=== PATIENT | male | born 1940 | race Hispanic/Latino ===

== ENCOUNTER 2020-11-21 08:43 | Observation (INO) | payer MEDICARE ==
--- NOTE | 2020-11-21 09:48 | Emergency Department Report ---
ED General Adult HPI - General Chief complaint: Chest Pain Stated complaint: CHEST PAIN Time Seen by Provider: 11/21/20 09:42 Source: patient, EMS Mode of arrival: Stretcher Limitations: No Limitations - History of Present Illness Initial comments: Patient is a 79-year-old male who presents emergency department after substernal chest pressure beginning this morning. Patient states episode resolved in route to the hospital and receiving nitroglycerin, has not had recurrence of discomfort since. Patient denies chest pain or shortness of breath, denies nausea vomiting diarrhea, denies fever, denies cough. Patient at present time asymptomatic. Severity scale (0 -10): 0 - Related Data Allergies Allergy/AdvReac Type Severity Reaction Status Date / Time Penicillins Allergy Rash Verified 11/21/20 09:33 ED Review of Systems ROS: Stated complaint: CHEST PAIN Other details as noted in HPI Comment: All other systems reviewed and negative ED Past Medical Hx - Past Medical History Previous Medical History?: Yes Hx Hypertension: Yes Hx Heart Attack/AMI: Yes Hx Diabetes: Yes Hx GERD: Yes Hx of Cancer: Yes (skin) - Surgical History Past Surgical History?: Yes Hx Open Heart Surgery: Yes Additional Surgical History: hemrrhoid. left ear surgery for skin cancer - Social History Smoking Status: Never Smoker Substance Use Type: None ED Physical Exam - General Limitations: No Limitations General appearance: alert, in no apparent distress - Head Head exam: Present: atraumatic, normocephalic - Eye Eye exam: Present: normal appearance - ENT ENT exam: Present: mucous membranes moist - Neck Neck exam: Present: normal inspection - Respiratory Respiratory exam: Present: normal lung sounds bilaterally. Absent: respiratory distress - Cardiovascular Cardiovascular Exam: Present: regular rate, normal rhythm - GI/Abdominal GI/Abdominal exam: Present: soft, normal bowel sounds - Rectal Rectal exam: Present: deferred - Extremities Exam Extremities exam: Present: normal inspection - Back Exam Back exam: Present: normal inspection - Neurological Exam Neurological exam: Present: alert, oriented X3 - Psychiatric Psychiatric exam: Present: normal affect, normal mood - Skin Skin exam: Present: warm, dry, intact, normal color. Absent: rash ED Course Vital Signs 11/21/20 11/21/20 11/21/20 09:00 09:27 09:31 Temperature 98.0 F Pulse Rate 73 75 69 Respiratory 16 10 L 18 Rate Blood Pressure 128/64 128/64 O2 Sat by Pulse 99 98 Oximetry 11/21/20 11/21/20 11/21/20 09:37 09:45 10:00 Temperature Pulse Rate 72 67 Respiratory 18 21 19 Rate Blood Pressure 128/64 123/64 O2 Sat by Pulse 99 98 99 Oximetry 11/21/20 11/21/20 11/21/20 10:15 10:31 10:45 Temperature Pulse Rate 63 77 71 Respiratory 19 12 16 Rate Blood Pressure 123/64 123/64 123/64 O2 Sat by Pulse 99 90 99 Oximetry 11/21/20 11/21/20 11/21/20 11:00 11:15 11:31 Temperature Pulse Rate 65 78 66 Respiratory 18 14 13 Rate Blood Pressure 127/62 127/62 127/62 O2 Sat by Pulse 97 99 97 Oximetry 11/21/20 11/21/20 11/21/20 11:45 12:01 12:15 Temperature Pulse Rate 67 69 67 Respiratory 16 18 21 Rate Blood Pressure 127/62 127/62 127/62 O2 Sat by Pulse 97 99 98 Oximetry 11/21/20 11/21/20 11/21/20 12:31 12:45 13:00 Temperature Pulse Rate 85 66 72 Respiratory 15 16 13 Rate Blood Pressure 127/62 127/62 136/72 O2 Sat by Pulse 98 97 99 Oximetry 11/21/20 13:15 Temperature Pulse Rate 86 Respiratory 18 Rate Blood Pressure 136/72 O2 Sat by Pulse 100 Oximetry - Reevaluation(s) Reevaluation #1: 11/21/20 14:33 Contacted [facility] to confirm patient's PMH: (+) CABG x 2; (+) hypertension, (+) former smoker, (+) GERD, (+) h ypercholesterolemia, (+) hyperthyroidism, (+) DM ED Medical Decision Making - Lab Data Result diagrams: 11/21/20 09:46 11/21/20 09:46 Labs 11/21/20 11/21/20 11/21/20 09:46 09:46 12:29 WBC 3.9 L RBC 4.01 Hgb 12.6 Hct 36.8 MCV 92 MCH 31 MCHC 34 RDW 13.2 Plt Count 174 Lymph % (Auto) 24.4 [place] % (Auto) 10.8 H Eos % (Auto) 1.1 Baso % (Auto) 0.5 Lymph # (Auto) 1.0 L [place] # (Auto) 0.4 Eos # (Auto) 0.0 Baso # (Auto) 0.0 Seg Neutrophils % 63.2 Seg Neutrophils # 2.5 Sodium 140 Potassium 3.8 Chloride 107.2 H Carbon Dioxide 25 Anion Gap 12 BUN 16 Creatinine 0.8 Estimated GFR > 60 BUN/Creatinine Ratio 20 Glucose 152 H Calcium 8.4 Total Bilirubin Direct Bilirubin Indirect Bilirubin AST ALT Alkaline Phosphatase Troponin T < 0.010 0.020 Total Protein Albumin Albumin/Globulin Ratio Lipase 11/21/20 12:29 WBC RBC Hgb Hct MCV MCH MCHC RDW Plt Count Lymph % (Auto) [place] % (Auto) Eos % (Auto) Baso % (Auto) Lymph # (Auto) [place] # (Auto) Eos # (Auto) Baso # (Auto) Seg Neutrophils % Seg Neutrophils # Sodium Potassium Chloride Carbon Dioxide Anion Gap BUN Creatinine Estimated GFR BUN/Creatinine Ratio Glucose Calcium Total Bilirubin 0.30 Direct Bilirubin < 0.2 Indirect Bilirubin 0.1 AST 15 ALT 14 Alkaline Phosphatase 73 Troponin T Total Protein 6.9 Albumin 4.1 Albumin/Globulin Ratio 1.5 Lipase 31 Vital Signs 11/21/20 11/21/20 11/21/20 09:00 09:27 09:31 Temperature 98.0 F Pulse Rate 73 75 69 Respiratory 16 10 L 18 Rate Blood Pressure 128/64 128/64 O2 Sat by Pulse 99 98 Oximetry 11/21/20 11/21/20 11/21/20 09:37 09:45 10:00 Temperature Pulse Rate 72 67 Respiratory 18 21 19 Rate Blood Pressure 128/64 123/64 O2 Sat by Pulse 99 98 99 Oximetry 11/21/20 11/21/20 11/21/20 10:15 10:31 10:45 Temperature Pulse Rate 63 77 71 Respiratory 19 12 16 Rate Blood Pressure 123/64 123/64 123/64 O2 Sat by Pulse 99 90 99 Oximetry 11/21/20 11/21/20 11/21/20 11:00 11:15 11:31 Temperature Pulse Rate 65 78 66 Respiratory 18 14 13 Rate Blood Pressure 127/62 127/62 127/62 O2 Sat by Pulse 97 99 97 Oximetry 11/21/20 11/21/20 11/21/20 11:45 12:01 12:15 Temperature Pulse Rate 67 69 67 Respiratory 16 18 21 Rate Blood Pressure 127/62 127/62 127/62 O2 Sat by Pulse 97 99 98 Oximetry 11/21/20 11/21/20 11/21/20 12:31 12:45 13:00 Temperature Pulse Rate 85 66 72 Respiratory 15 16 13 Rate Blood Pressure 127/62 127/62 136/72 O2 Sat by Pulse 98 97 99 Oximetry 11/21/20 13:15 Temperature Pulse Rate 86 Respiratory 18 Rate Blood Pressure 136/72 O2 Sat by Pulse 100 Oximetry - EKG Data -: EKG Interpreted by Me (Sinus rhythm at 67, no ST-T changes, normal QRS) - Radiology Data Radiology results: report reviewed CHEST 1 VIEW INDICATION / CLINICAL INFORMATION: Chest Pain. FINDINGS: SUPPORT DEVICES: None. HEART / MEDIASTINUM: No significant abnormality. LUNGS / PLEURA: No significant pulmonary or pleural abnormality. No pneumothorax. ADDITIONAL FINDINGS: No significant additional findings. IMPRESSION: 1. No acute findings. Signer Name: Jose Ortiz MD Signed: 11/21/2020 9:00 AM Workstation Name: [id number] Critical care attestation.: If time is entered above; I have spent that time in minutes in the direct care of this critically ill patient, excluding procedure time. ED Disposition Clinical Impression: Chest pain Disposition: 09 OP ADMIT IP TO THIS HOSP Is pt being admited?: Yes Does the pt Need Aspirin: Yes Condition: Stable Instructions: Chest Pain (ED) HEART Score - HEART Score History: Slightly suspicious EKG: Normal Age: > 65 Risk factors: > 3 risk factors or hx of atherosclerotic disease Troponin: Troponin T 0.020 ng/mL (0.00-0.029) 11/21/20 12:29 Troponin: < normal limit HEART Score: 4
[2020-11-21 09:58] LABS: Basophils % (Auto) 0.5 % (0.0-1.8); Eosinophils % (Auto) 1.1 % (0.0-4.3); Hematocrit 36.8 % (35.5-45.6); Hemoglobin 12.6 gm/dl (11.8-15.2); Lymphocytes % (Auto) 24.4 % (13.4-35.0); Mean Corpuscular HGB Conc 34 % (32-34); Mean Corpuscular Volume 92 fl (84-94); Monocytes # (Auto) 0.4 K/mm3 (0.0-0.8); Monocytes % (Auto) 10.8 % (0.0-7.3); Platelet Count 174 K/mm3 (140-440); Red Blood Count 4.01 M/mm3 (3.65-5.03); Red Cell Distribution Width 13.2 % (13.2-15.2)
--- NOTE | 2020-11-21 10:05 | XRay Report ---
CHEST 1 VIEW INDICATION / CLINICAL INFORMATION: Chest Pain. FINDINGS: SUPPORT DEVICES: None. HEART / MEDIASTINUM: No significant abnormality. LUNGS / PLEURA: No significant pulmonary or pleural abnormality. No pneumothorax. ADDITIONAL FINDINGS: No significant additional findings. IMPRESSION: 1. No acute findings. Signer Name: Jose Ortiz MD Signed: 11/21/2020 10:00 AM Workstation Name: [id number]
[2020-11-21 10:56] LABS: BUN/Creatinine Ratio 20; Blood Urea Nitrogen 16 mg/dL (9-20); Calcium 8.4 mg/dL (8.4-10.2); Hemolysis Index 4
[2020-11-21 13:36] LABS: Alanine Aminotransferase 14 units/L (7-56); Albumin 4.1 g/dL (3.9-5)
[2020-11-21 13:43] LABS: Bilirubin,Direct < 0.2 mg/dL (0-0.2)
[2020-11-21] MEDS ORDERED: ASPIRIN 325 MG TAB PO ONE (14:35)
--- NOTE | 2020-11-21 14:38 | History and Physical Report ---
History of Present Illness Chief complaint: My chest started hurting today History of present illness: 79 YO Male with HTN, IL, DM, GERD, CAD S/P CABG, Skin Cancer presents ED for evaluation. Patient states that he experienced sudden onset of chest pain today while taking out his garbage. Patient states that pain was 6/10, intermittent, substernal, worsened with exertion, relieved with rest, associated with shortn ess of breath, relieved with nitro. Patient knowledges decreased exercise tolerance, dyspnea on exertion, as well as dyspnea at rest. EMS was notified and upon arrival the patient was found to be in distress and subsequently transported to [facility] for further care and evaluation of the aforementioned symptoms. The patient was seen and evaluated in the emergency department. All lab and imaging studies reviewed. The patient was found to have symptoms consistent with angina as well as diastolic congestive heart failure. The patient was admitted to telemetry and initiated on chest pain protocol. Cardiology team consulted in ED. Patient denies fever, chills, palpitations, productive cough, skin rash, recent ill contacts, or known exposure to COVID-19. No medication listed at time of admission for reconciliation. No prior admission for review. Advanced care planning conducted in the emergency department. Past History Past Medical History: acute IL, CAD, diabetes, GERD, hypertension, hyperlipidemia, other (See HPI) Past Surgical History: CABG Social history: , lives with family. denies: smoking, alcohol abuse Family history: diabetes, hypertension Medications and Allergies Allergies Allergy/AdvReac Type Severity Reaction Status Date / Time Penicillins Allergy Rash Verified 11/21/20 09:33 Review of Systems Constitutional: no weight loss, no weight gain, no fever, no chills Ears, nose, mouth and throat: no ear pain, no ear discharge, no tinnitis, no decreased hearing, no nose pain Cardiovascular: chest pain, shortness of breath, dyspnea on exertion, decreased exercise tolerance, no palpitations, no edema, no syncope Respiratory: no cough, no cough with sputum, no excessive sputum Gastrointestinal: no abdominal pain, no nausea, no vomiting, no diarrhea, no con stipation Genitourinary Male: no hematuria, no flank pain, no urinary frequency, no urinary hesitancy, no nocturia Rectal: no pain, no incontinence, no bleeding Musculoskeletal: no neck stiffness, no neck pain, no shooting arm pain, no arm numbness/tingling, no low back pain, no shooting leg pain Integumentary: no rash, no pruritis, no redness, no sores Neurological: no head injury, no transient paralysis, no paralysis, no parathesias, no seizures, no syncope Psychiatric: no memory loss, no change in sleep habits, no sleep disturbances, no hypersomnia Endocrine: no cold intolerance, no polyphagia, no excessive thirst, no polydipsia, no polyuria, no nocturia Hematologic/Lymphatic: no easy bruising, no easy bleeding, no lymphedema Allergic/Immunologic: no urticaria, no wheezing, no anaphylaxis Exam - Constitutional Vitals: Temp Pulse Resp BP Pulse Ox 98.0 F 86 18 136/72 100 11/21/20 09:00 11/21/20 13:15 11/21/20 13:15 11/21/20 13:15 11/21/20 13:15 General appearance: Present: mild distress - EENT Eyes: Present: PERRL ENT: hearing intact, clear oral mucosa - Neck Neck: Present: supple, normal ROM - Respiratory Respiratory effort: normal Respiratory: bilateral: CTA - Cardiovascular Heart Sounds: Present: S1 & S2. Absent: rub, click - Extremities Extremities: pulses symmetrical Extremity abnormal: edema Peripheral Pulses: within normal limits - Abdominal General gastrointestinal: Present: soft, non-tender, non-distended, normal bowel sounds Male genitourinary: Present: normal - Integumentary Integumentary: Present: clear, warm, dry - Musculoskeletal Musculoskeletal: gait normal, strength equal bilaterally - Psychiatric Psychiatric: appropriate mood/affect, intact judgment & insight - Neurologic Neurologic: CNII-XII intact, moves all extremities HEART Score - HEART Score EKG: Normal Age: > 65 Risk factors: > 3 risk factors or hx of atherosclerotic disease Troponin: Troponin T 0.020 ng/mL (0.00-0.029) 11/21/20 12:29 Troponin: < normal limit Results - Labs CBC & Chem 7: 11/21/20 09:46 11/21/20 09:46 Labs: Abnormal lab results 11/21/20 11/21/20 Range/Units 09:46 09:46 WBC 3.9 L (4.5-11.0) K/mm3 [place] % (Auto) 10.8 H (0.0-7.3) % Lymph # (Auto) 1.0 L (1.2-5.4) K/mm3 Chloride 107.2 H (98-107) mmol/L Glucose 152 H (75-100) mg/dL Assessment and Plan - Patient Problems (1) Diastolic CHF Current Visit: Yes Status: Acute Qualifiers: Heart failure chronicity: acute Qualified Code(s): I50.31 - Acute diastolic (congestive) heart failure Plan to address problem: Admit to telemetry, afterload reduction, strict I's/O, monitor urine output every shift, daily weight, echocardiogram ordered and is pending at time of admission, BNP, thyroid panel, magnesium level (2) Angina at rest Current Visit: Yes Status: Acute Plan to address problem: Serial cardiac enzymes, EKG, telemetry, supplemental oxygen, morphine, nitro tabs, aspirin, further care as per cardiology team. (3) Hypertension Current Visit: Yes Status: Acute Qualifiers: Hypertension type: essential hypertension Qualified Code(s): I10 - Essential (primary) hypertension Plan to address problem: Monitor blood pressure every shift, continue medical management. (4) GERD (gastroesophageal reflux disease) Current Visit: Yes Status: Acute Qualifiers: Esophagitis presence: without esophagitis Qualified Code(s): K21.9 - Gastro-esophageal reflux disease without esophagitis Plan to address problem: PPI therapy, supportive care. (5) Coronary artery disease Current Visit: Yes Status: Acute Plan to address problem: Antiplatelet therapy, risk factor reduction, supportive care. (6) DVT prophylaxis Current Visit: Yes Status: Acute Plan to address problem: SCD to bilateral lower extremities while in bed, patient is ambulatory. (7) Advance care planning Current Visit: Yes Status: Acute Plan to address problem: Disease education conducted, patient is full code, care plan discussed, prognosis discussed, patient knowledges understanding and agreement with care plan, +30 minutes.
[2020-11-21] MEDS ORDERED: ASPIRIN 81 MG TAB CHEW PO STA (14:39)
[2020-11-21] MEDS ORDERED: ACETAMINOPHEN 325 MG TAB PO PRN ×2 (14:39→15:00)
[2020-11-21] MEDS ORDERED: ONDANSETRON 4 MG/2 ML INJ IV PRN (15:00)
[2020-11-21 16:48] LABS: Chol/HDL Ratio 2.25 %
[2020-11-21 18:32] LABS: Free T4 (Free Thyroxine) 1.48 ng/dL (0.76-1.46)
[2020-11-21] MEDS: DOCUSATE SODIUM 100 MG CAP PO SCH (21:27)
[2020-11-22 06:13] LABS: Blood Urea Nitrogen 13 mg/dL (9-20); Calcium 8.6 mg/dL (8.4-10.2); Hemolysis Index 5
[2020-11-22 06:17] LABS: BUN/Creatinine Ratio 19
--- NOTE | 2020-11-22 09:40 | Progress Note ---
Assessment and Plan Assessment and plan: 79 YO Male with HTN, OH, DM, GERD, CAD S/P CABG, Skin Cancer presents ED for evaluation. Patient states that he experienced sudden onset of chest pain today while taking out his garbage. Patient states that pain was 6/10, intermittent, substernal, worsened with exertion, relieved with rest, associated with shortness of breath, relieved with nitro. Patient knowledges decreased exercise tolerance, dyspnea on exertion, as well as dyspnea at rest. EMS was notified and upon arrival the patient was found to be in distress and subsequently transported to [facility] for further care and evaluation of the aforementioned symptoms. The patient was seen and evaluated in the emergency department. All lab and imaging studies reviewed. The patient was found to have symptoms consistent with angina as well as diastolic congestive heart failure. The patient was admitted to telemetry and initiated on chest pain protocol. Cardiology team consulted in ED. Patient denies fever, chills, palpitations, productive cough, skin rash, recent ill contacts, or known exposure to COVID-19. No medication listed at time of admission for reconciliation. No prior admission for review. Advanced care planning conducted in the emergency department. 11/22: NSTEMI: Noted positive troponin which is a change from initial troponin. Continue aspirin and home medications. No active chest pain at this time. I requested an EKG while awaiting cardiology eval. We will keep patient n.p.o. at this time. Chest x-ray is unremarkable (1) Diastolic CHF Current Visit: Yes Status: Acute Qualifiers: Heart failure chronicity: acute Qualified Code(s): I50.31 - Acute diastolic (congestive) heart failure Plan to address problem: Admit to telemetry, afterload reduction, strict I's/O, monitor urine output every shift, daily weight, echocardiogram ordered and is pending at time of admission, BNP, thyroid panel, magnesium level (2) Angina at rest Current Visit: Yes Status: Acute Plan to address problem: Serial cardiac enzymes, EKG, telemetry, supplemental oxygen, morphine, nitro tabs, aspirin, further care as per cardiology team. (3) Hypertension Current Visit: Yes Status: Acute Qualifiers: Hypertension type: essential hypertension Qualified Code(s): I10 - Essential (primary) hypertension Plan to address problem: Monitor blood pressure every shift, continue medical management. (4) GERD (gastroesophageal reflux disease) Current Visit: Yes Status: Acute Qualifiers: Esophagitis presence: without esophagitis Qualified Code(s): K21.9 - Gastro-esophageal reflux disease without esophagitis Plan to address problem: PPI therapy, supportive care. (5) Coronary artery disease Current Visit: Yes Status: Acute Plan to address problem: Antiplatelet therapy, risk factor reduction, supportive care. (6) DVT prophylaxis Current Visit: Yes Status: Acute Plan to address problem: SCD to bilateral lower extremities while in bed, patient is ambulatory. (7) Advance care planning Current Visit: Yes Status: Acute Plan to address problem: Disease education conducted, patient is full code, care plan discussed, prognosis discussed, patient knowledges understanding and agreement with care plan, +30 minutes. History Interval history: Patient seen and examined no new chest pain today. He tells me that he has recurrent chest pains. But yesterday his pain was worse than normal prompting him to come to the hospital. Denies any shortness of breath. He does have a dressing on his scar which he states is secondary to excised skin cancer. Hospitalist Physical - Physical exam Narrative exam: VITAL SIGNS: Reviewed. GENERAL: The patient appears normally developed, Vital signs as documented. HEAD: No signs of head trauma. EYES: Pupils are equal. Extraocular motions intact. EARS: Hearing grossly intact. MOUTH: Oropharynx is normal. NECK: No adenopathy, no JVD. CHEST: Chest with clear breath sounds bilaterally. No wheezes, rales, or rhonchi. CARDIAC: Regular rate and rhythm. S1 and S2, without murmurs, gallops, or rubs. VASCULAR: No Edema. Peripheral pulses normal and equal in all extremities. ABDOMEN: Soft, non tender and non distended. No rebound or guarding, and no masses palpated. Bowel Sounds normal. MUSCULOSKELETAL: Good range of motion of all major joints. Extremities without clubbing, cyanosis or edema. NEUROLOGIC EXAM: Alert and oriented x 3 No focal sensory or strength deficits. Speech normal. Follows commands. PSYCHIATRIC: Mood normal. SKIN: Band-Aid on skull. Detail exam as documented in skin assessment - Constitutional Vitals: Temp Pulse Resp BP Pulse Ox 98.9 F 76 20 138/67 97 11/22/20 08:23 11/22/20 08:23 11/22/20 08:23 11/22/20 08:23 11/22/20 08:42 General appearance: Present: mild distress HEART Score - HEART Score EKG: Normal Age: > 65 Risk factors: > 3 risk factors or hx of atherosclerotic disease Troponin: Troponin T 0.043 ng/mL (0.00-0.029) H D 11/21/20 20:40 Troponin: < normal limit Results - Labs CBC & Chem 7: 11/21/20 09:46 11/22/20 05:02 Labs: Laboratory Last Values WBC 3.9 K/mm3 (4.5-11.0) L 11/21/20 09:46 RBC 4.01 M/mm3 (3.65-5.03) 11/21/20 09:46 Hgb 12.6 gm/dl (11.8-15.2) 11/21/20 09:46 Hct 36.8 % (35.5-45.6) 11/21/20 09:46 MCV 92 fl (84-94) 11/21/20 09:46 MCH 31 pg (28-32) 11/21/20 09:46 MCHC 34 % (32-34) 11/21/20 09:46 RDW 13.2 % (13.2-15.2) 11/21/20 09:46 Plt Count 174 K/mm3 (140-440) 11/21/20 09:46 Lymph % (Auto) 24.4 % (13.4-35.0) 11/21/20 09:46 Wayne % (Auto) 10.8 % (0.0-7.3) H 11/21/20 09:46 Eos % (Auto) 1.1 % (0.0-4.3) 11/21/20 09:46 Baso % (Auto) 0.5 % (0.0-1.8) 11/21/20 09:46 Lymph # (Auto) 1.0 K/mm3 (1.2-5.4) L 11/21/20 09:46 Wayne # (Auto) 0.4 K/mm3 (0.0-0.8) 11/21/20 09:46 Eos # (Auto) 0.0 K/mm3 (0.0-0.4) 11/21/20 09:46 Baso # (Auto) 0.0 K/mm3 (0.0-0.1) 11/21/20 09:46 Seg Neutrophils % 63.2 % (40.0-70.0) 11/21/20 09:46 Seg Neutrophils # 2.5 K/mm3 (1.8-7.7) 11/21/20 09:46 Sodium 143 mmol/L (137-145) 11/22/20 05:02 Potassium 3.7 mmol/L (3.6-5.0) 11/22/20 05:02 Chloride 109.9 mmol/L (98-107) H 11/22/20 05:02 Carbon Dioxide 22 mmol/L (22-30) 11/22/20 05:02 Anion Gap 15 mmol/L 11/22/20 05:02 BUN 13 mg/dL (9-20) 11/22/20 05:02 Creatinine 0.7 mg/dL (0.8-1.3) L 11/22/20 05:02 Estimated GFR > 60 ml/min 11/22/20 05:02 BUN/Creatinine Ratio 19 % 11/22/20 05:02 Glucose 114 mg/dL (75-100) H 11/22/20 05:02 Calcium 8.6 mg/dL (8.4-10.2) 11/22/20 05:02 Magnesium 2.10 mg/dL (1.7-2.3) 11/21/20 17:16 Total Bilirubin 0.30 mg/dL (0.1-1.2) 11/21/20 12:29 Direct Bilirubin < 0.2 mg/dL (0-0.2) 11/21/20 12:29 Indirect Bilirubin 0.1 mg/dL 11/21/20 12:29 AST 15 units/L (5-40) 11/21/20 12:29 ALT 14 units/L (7-56) 11/21/20 12:29 Alkaline Phosphatase 73 units/L (35-129) 11/21/20 12:29 Troponin T 0.043 ng/mL (0.00-0.029) H D 11/21/20 20:40 NT-Pro-B Natriuret Pep 720.0 pg/mL (0-900) 11/21/20 14:57 Total Protein 6.9 g/dL (6.3-8.2) 11/21/20 12:29 Albumin 4.1 g/dL (3.9-5) 11/21/20 12:29 Albumin/Globulin Ratio 1.5 % 11/21/20 12:29 Triglycerides 46 mg/dL (2-149) 11/21/20 14:57 Cholesterol 124 mg/dL (50-199) 11/21/20 14:57 LDL Cholesterol Direct 68 mg/dL (50-130) 11/21/20 14:57 HDL Cholesterol 55 mg/dL (40-59) 11/21/20 14:57 Cholesterol/HDL Ratio 2.25 % 11/21/20 14:57 Lipase 31 units/L (13-60) 11/21/20 12:29 TSH 1.000 mlU/mL (0.270-4.200) 11/21/20 17:16 Free T4 1.48 ng/dL (0.76-1.46) H 11/21/20 17:16 - Diagnostic Impressions Diagnostic Impressions: Echocardiogram 11/21/20 14:41 Transthoracic Echocardiogram Indication: Angina BP: 136/72 HR: 70 Conclusions *Global left ventricular systolic function is normal. *The estimated ejection fraction is 55-60%. *The right atrium is mildly dilated. *There is trace of aortic regurgitation. *There is trace of mitral regurgitation. *There is mild tricuspid regurgitation. Findings Left Ventricle: The left ventricular chamber size is normal. There is no left ventricular hypertrophy. Global left ventricular systolic function is normal. The estimated ejection fraction is 55-60%. Left Atrium: The left atrial chamber size is normal. Right Ventricle: The right ventricle is slightly dilated. The right ventricular global systolic function is normal. Right Atrium: The right atrium is mildly dilated. Aortic Valve: The aortic valve leaflets are moderately thickened. There is trace of aortic regurgitation. There is no evidence of aortic stenosis. Mitral Valve: The mitral valve leaflets are mildly thickened. There is trace of mitral regurgitation. There is no evidence of mitral stenosis. Tricuspid Valve: There is mild tricuspid regurgitation. No pulmonary hypertension is noted. Pulmonic Valve: There is trace pulmonic regurgitation. Pericardium: There is no pericardial effusion. Aorta: There is no dilatation of the ascending aorta. There is no dilatation of the aortic root. Venous: The inferior vena cava appears normal in size. Measurements Chambers 2D Name Value Normal Range IVSd (2D) 0.97 cm (0.6 - 1.1) LVPWd (2D) 1.04 cm (0.6 - 1.1) LVIDd (2D) 4.58 cm (3.7 - 5.6) LVIDs (2D) 2.84 cm (2 - 3.8) LV FS (2D) 38.04 % - EF Teichholz (2D) 68.3 % - Ao root diameter (2D) 3.33 cm (2 - 3.7) Volumes/Mass Name Value Normal Range LA ESV SP 4CH (A/L) 58.09 ml - LA ESV SP 2CH (A/L) 55.8 ml - LA ESV BP (A/L) 61.3 ml - LA ESV SP 4CH (MOD) 53.13 ml - LA ESV SP 2CH (MOD) 54.41 ml - Diastolic/Systolic Function Name Value Normal Range MV E-wave Vmax 0.78 m/sec - MV deceleration time 206.67 msec - MV A-wave Vmax 0.88 m/sec - MV E:A ratio 0.89 ratio - Aortic Valve Name Value Normal Range AV Vmax 1.44 m/sec - AV VTI 32.51 cm - AV peak gradient 8.25 mmHg - AV mean gradient 4.09 mmHg - LVOT diameter 1.94 cm - LVOT Vmax 1.08 m/sec - LVOT VTI 25.78 cm - LVOT peak gradient 4.69 mmHg - LVOT mean gradient 2.56 mmHg - SV LVOT 75.95 ml - JOHNATHAN (continuity Vmax) 2.22 cm2 - JOHNATHAN (continuity VTI) 2.34 cm2 - Ascending Ao 3.18 cm - Tricuspid Valve Name Value Normal Range TR Vmax 1.95 m/sec - TR peak gradient 15.26 mmHg - Pulmonic Valve/Qp:Qs Name Value Normal Range PV Vmax 0.9 m/sec - PV peak gradient 3.25 mmHg - NM end-diastolic Vmax 0.98 m/sec - PV acceleration time 106.57 msec - Orellana/IV: Voiding Method Urinal IV Catheter Type [Right Peripheral IV Antecubital] Active Medications - Current Medications Current Medications: Generic Name Dose Route Start Last Admin Trade Name Freq PRN Reason Stop Dose Admin Acetaminophen 650 mg 11/21/20 15:00 Acetaminophen 325 Mg Tab PO Q4H PRN Pain MILD(1-3)/Fever >100.5/GUTIÉRREZ Docusate Sodium 100 mg 11/21/20 22:00 11/21/20 21:27 Docusate Sodium 100 Mg Cap PO 100 mg BID KAVITA Administration Ondansetron HCl 4 mg 11/21/20 15:00 Ondansetron 4 Mg/2 Ml Inj IV Q8H PRN Nausea And Vomiting Sodium Chloride 10 ml 11/21/20 22:00 11/21/20 21:27 Sodium Chloride 0.9% 10 Ml Flush Syringe IV 10 ml BID KAVITA Administration Sodium Chloride 10 ml 11/21/20 14:39 Sodium Chloride 0.9% 10 Ml Flush Syringe IV PRN PRN LINE FLUSH Sodium Chloride 10 ml 11/21/20 14:39 Sodium Chloride 0.9% 10 Ml Flush Syringe IV PRN PRN LINE FLUSH
[2020-11-22] MEDS: DOCUSATE SODIUM 100 MG CAP PO SCH (09:50)
--- NOTE | 2020-11-22 11:44 | Consultation ---
History of Present Illness Consult date: 11/22/20 Consult reason: chest pain History of present illness: Patient is a 79-year-old man admitted to the hospital with atypical, poorly c haracterized chest pain. His ECG was normal sinus rhythm, normal ECG with no ST or T wave abnormalities. The troponin level was minimally elevated at 0.04, unchanged on serial measurements. Cardiac consultation was requested. The patient has an extensive cardiac history, status post prior two-vessel coronary bypass. Just 4 months ago, he underwent a cardiac catheterization by his primary cushion builder, the left internal mammary artery graft to the LAD was patent. The saphenous vein graft to the obtuse marginal branch of the circumflex artery was occluded, and he was recommended for medical therapy for small vessel disease. On this current presentation, the echocardiogram reports left ventricular ejection fraction well preserved at 55 to 60%. Chest x-ray shows changes of prior thoracotomy, normal size cardiac silhouette and clear lungs. Today, patient is comfortable on telemetry, no further chest pain, no shortness of breath looks and feels well. Past History Past Medical History: acute LA, CAD, diabetes, GERD, hypertension, hyperlipidemia Past Surgical History: CABG Social history: , lives with family. denies: smoking, alcohol abuse Family history: diabetes, hypertension Medications and Allergies Allergies Allergy/AdvReac Type Severity Reaction Status Date / Time Penicillins Allergy Rash Verified 11/21/20 09:33 Active Meds: Active Medications Acetaminophen (Acetaminophen 325 Mg Tab) 650 mg PO Q4H PRN PRN Reason: Pain MILD(1-3)/Fever >100.5/GUTIÉRREZ Aspirin (Aspirin Ec 81 Mg Tab) 81 mg PO QDAY [facility] Atorvastatin Calcium (Atorvastatin 40 Mg Tab) 40 mg PO QHS [facility] Docusate Sodium (Docusate Sodium 100 Mg Cap) 100 mg PO BID [facility] Last Admin: 11/22/20 09:50 Dose: 100 mg Documented by: Lisinopril (Lisinopril 5 Mg Tab) 2.5 mg PO QDAY [facility] Metoprolol Tartrate (Metoprolol Tartrate 25 Mg Tab) 25 mg PO BID [facility] Ondansetron HCl (Ondansetron 4 Mg/2 Ml Inj) 4 mg IV Q8H PRN PRN Reason: Nausea And Vomiting Ranolazine (Ranolazine Er 500 Mg Tab 12hr) 500 mg PO BID [facility] Sodium Chloride (Sodium Chloride 0.9% 10 Ml Flush Syringe) 10 ml IV BID KAVITA Last Admin: 11/22/20 09:50 Dose: 10 ml Documented by: Sodium Chloride (Sodium Chloride 0.9% 10 Ml Flush Syringe) 10 ml IV PRN PRN PRN Reason: LINE FLUSH Sodium Chloride (Sodium Chloride 0.9% 10 Ml Flush Syringe) 10 ml IV PRN PRN PRN Reason: LINE FLUSH Review of Systems Cardiovascular: chest pain, shortness of breath, no orthopnea, no palpitations, no rapid/irregular heart beat, no edema, no syncope, no lightheadedness Physical Examination Vital Signs Temp Pulse Resp BP Pulse Ox 98.0 F 73 16 128/64 99 11/21/20 09:00 11/21/20 09:00 11/21/20 09:00 11/21/20 09:00 11/21/20 09:00 General appearance: no acute distress HEENT: Positive: PERRL Neck: Positive: neck supple Cardiac: Positive: Reg Rate and Rhythm Lungs: Positive: Decreased Breath Sounds Neuro: Positive: Grossly Intact Abdomen: Positive: Soft Male genitourinary: Positive: deferred Skin: Positive: Clear Extremities: Absent: edema Results 11/21/20 09:46 11/22/20 05:02 Cardiac Enzymes 11/21/20 Range/Units 12:29 AST 15 (5-40) units/L Lipids 11/21/20 Range/Units 14:57 Triglycerides 46 (2-149) mg/dL Cholesterol 124 (50-199) mg/dL HDL Cholesterol 55 (40-59) mg/dL Cholesterol/HDL Ratio 2.25 % Comprehensive Metabolic Panel 11/21/20 11/22/20 Range/Units 12:29 05:02 Sodium 143 (137-145) mmol/L Potassium 3.7 (3.6-5.0) mmol/L Chloride 109.9 H (98-107) mmol/L Carbon Dioxide 22 (22-30) mmol/L BUN 13 (9-20) mg/dL Creatinine 0.7 L (0.8-1.3) mg/dL Glucose 114 H (75-100) mg/dL Calcium 8.6 (8.4-10.2) mg/dL Direct Bilirubin < 0.2 (0-0.2) mg/dL Indirect Bilirubin 0.1 mg/dL AST 15 (5-40) units/L ALT 14 (7-56) units/L Alkaline Phosphatase 73 (35-129) units/L Total Protein 6.9 (6.3-8.2) g/dL Albumin 4.1 (3.9-5) g/dL EKG interpretations - Telemetry EKG Rhythm: Sinus Rhythm Assessment and Plan - Patient Problems (1) Chest pain Current Visit: Yes Status: Acute Plan to address problem: Patient has coronary artery disease, chronic stable angina on medical therapy. After review of his cardiac catheterization report from 4 months ago, we recommend optimization of antianginal therapy with addition of Ranexa 500 mg twice daily. The patient can go home on optimal medical therapy and follow-up with his primary cushion builder Dr. Rogers, within 5 to 7 days of discharge. Follow-up monitoring of chronic angina and any further interventions will be u ndertaken in the outpatient setting.
[2020-11-22] MEDS ORDERED: METOPROLOL TARTRATE 25 MG TAB PO SCH (12:00)
[2020-11-22] MEDS ORDERED: LISINOPRIL 5 MG TAB PO SCH (12:00)
[2020-11-22 12:28] VITALS: BP 128/74
[2020-11-22] MEDS ORDERED: RANOLAZINE ER 500 MG TAB 12HR PO SCH (14:00)
[2020-11-22] MEDS ORDERED: ASPIRIN EC 81 MG TAB PO SCH (14:00)
--- NOTE | 2020-11-22 14:02 | Discharge Summary ---
Providers - Providers Date of Admission: 11/21/20 14:39 Attending physician: LOLITA PAULA MD 11/21/20 Consult to Cardiac Rehabilitation [CONS] Routine Reason For Exam: Phase I 11/21/20 14:39 Consult to Cardiology [CONS] Routine Consulting Provider: LAMONT CASTORENA Reason For Exam: angina Primary care physician: DIGITAL TRAFFIC COORDINATOR Hospitalization Reason for admission: Chest pain Condition: Stable Hospital course: 79 YO Male with HTN, OH, DM, GERD, CAD S/P CABG, Skin Cancer presents ED for evaluation. Patient states that he experienced sudden onset of chest pain today while taking out his garbage. Patient states that pain was 6/10, intermittent, substernal, worsened with exertion, relieved with rest, associated with shortness of breath, relieved with nitro. Patient knowledges decreased exercise tolerance, dyspnea on exertion, as well as dyspnea at rest. EMS was notified and upon arrival the patient was found to be in distress and subsequently transported to [facility] for further care and evaluation of the aforementioned symptoms. The patient was seen and evaluated in the emergency department. All lab and imaging studies reviewed. The patient was found to have symptoms consistent with angina as well as diastolic congestive heart failure. The patient was admitted to telemetry and initiated on chest pain protocol. Cardio logy team consulted in ED. Patient denies fever, chills, palpitations, productive cough, skin rash, recent ill contacts, or known exposure to COVID-19. No medication listed at time of admission for reconciliation. No prior admission for review. Advanced care planning conducted in the emergency department. 11/22: Patient was seen and discussed with cardiology per recommendation from cardiology patient was discharged on Ranexa full recommendation as noted below. Patient is a 79-year-old man admitted to the hospital with atypical, poorly characterized chest pain. His ECG was normal sinus rhythm, normal ECG with no ST or T wave abnormalities. The troponin level was minimally elevated at 0.04, unchanged on serial measurements. Cardiac consultation was requested. The patient has an extensive cardiac history, status post prior two-vessel coronary bypass. Just 4 months ago, he underwent a cardiac catheterization by his primary fish bin tender, the left internal mammary artery graft to the LAD was patent. The saphenous vein graft to the obtuse marginal branch of the circumflex artery was occluded, and he was recommended for medical therapy for small vessel disease. On this current presentation, the echocardiogram reports left ventricular ejection fraction well preserved at 55 to 60%. Chest x-ray shows changes of prior thoracotomy, normal size cardiac silhouette and clear lungs. Today, patient is comfortable on telemetry, no further chest pain, no shortness of breath looks and feels well. (1) Diastolic CHF (2) Angina at rest (3) Hypertension (4) GERD (gastroesophageal reflux disease) (5) Coronary artery disease with type II troponinemia Disposition: TO HOME OR SELFCARE Time spent for discharge: 35-minute Core Measure Documentation - Palliative Care Palliative Care/ Comfort Measures: Not Applicable - Core Measures Any of the following diagnoses?: none Exam - Physical Exam Narrative exam: VITAL SIGNS: Reviewed. GENERAL: The patient appears normally developed, Vital signs as documented. HEAD: No signs of head trauma. EYES: Pupils are equal. Extraocular motions intact. EARS: Hearing grossly intact. MOUTH: Oropharynx is normal. NECK: No adenopathy, no JVD. CHEST: Chest with clear breath sounds bilaterally. No wheezes, rales, or rhonchi. CARDIAC: Regular rate and rhythm. S1 and S2, without murmurs, gallops, or rubs. VASCULAR: No Edema. Peripheral pulses normal and equal in all extremities. ABDOMEN: Soft, non tender and non distended. No rebound or guarding, and no masses palpated. Bowel Sounds normal. MUSCULOSKELETAL: Good range of motion of all major joints. Extremities without clubbing, cyanosis or edema. NEUROLOGIC EXAM: Alert and oriented x 3 No focal sensory or strength deficits. Speech normal. Follows commands. PSYCHIATRIC: Mood normal. SKIN: Band-Aid on skull. Detail exam as documented in skin assessment - Constitutional Vitals: Temp Pulse Resp BP Pulse Ox 98.1 F 70 20 128/74 99 11/22/20 12:28 11/22/20 12:58 11/22/20 12:28 11/22/20 12:58 11/22/20 12:28 Plan Follow up with: PRIMARY CARE, [Primary Care Provider] - 7 Days ZHAO BOSCH [Staff Physician] - 7 Days Prescriptions: AtorvaSTATin [Lipitor] 40 mg PO QHS #30 tablet Aspirin EC [Halfprin EC] 81 mg PO QDAY #30 tablet Ranolazine ER [Ranexa ER] 500 mg PO BID #60 tablet
== END 2020-11-22 15:53 | disposition home or self-care (01) ==
LOC: ED 08:43 → 4A 14:39
PROVIDERS: ADMIT Internal Medicine; ATTEND Internal Medicine
DX: I11.0 Hypertensive heart disease with heart failure (principal); I50.32 Chronic diastolic (congestive) heart failure; I20.8 Other forms of angina pectoris; K21.9 Gastro-esophageal reflux disease without esophagitis; I25.2 Old myocardial infarction; E11.9 Type 2 diabetes mellitus without complications; E78.5 Hyperlipidemia, unspecified; Z95.1 Presence of aortocoronary bypass graft; Z85.828 Personal history of other malignant neoplasm of skin; Z98.890 Other specified postprocedural states; Z79.82 Long term (current) use of aspirin
CPT/HCPCS: 36415; 71045; 80048; 80061; 80076; 83690; 83735; 83880; 84439; 84443; 84484; 85025; 93005; 93306; 99285; G0378